=== PATIENT | male | born 1945 | race Hispanic/Latino ===

== ENCOUNTER 2018-05-13 09:18 | Inpatient (IN) | payer MEDICARE ==
[~2018-05-13] VITALS: Ht 170.2 cm; Wt 108.5 kg
[2018-05-13] MEDS ORDERED: FAMOTIDINE 20 MG/2 ML VIAL IV STA (09:20)
[2018-05-13] MEDS ORDERED: ONDANSETRON HCL INJ 2 MG/ML VIAL IV STA (09:20)
[2018-05-13] MEDS ORDERED: SODIUM CHLORIDE 0.9% 1000ML 1,000 ML IV ONE (09:30)
[2018-05-13 09:35] LABS: BASOPHILS # (AUTO) 0.1 (0.0-0.1); BASOPHILS % 0.3 % (0.0-1.0); EOSINOPHILS # (AUTO) 0.1 (0.0-0.4); EOSINOPHILS % 0.7 % (0.0-6.0); HEMOGLOBIN 13.9 g/dL (14.0-18.0); MEAN CORPUSCULAR HEMOGLOBIN 31.4 pg (28-32); MEAN CORPUSCULAR HGB CONC 34.8 g/dL (31-35); MEAN CORPUSCULAR VOLUME 90.5 fL (81-99); MONOCYTES # (AUTO) 1.1 (0.2-0.8); MONOCYTES % 6.6 % (4.4-11.3); NEUTROPHILS # (AUTO) 13.5 (2.1-6.9); NEUTROPHILS % 79.7 % (38.7-80.0); PLATELET COUNT 266 x10e3/uL (140-360); RED BLOOD COUNT 4.42 x10e6/uL (4.3-5.7); RED CELL DISTRIBUTION WIDTH 13.8 % (11.7-14.4)
[2018-05-13 09:56] LABS: ALBUMIN 3.7 g/dL (3.5-5.0); ANION GAP 18.2 mmol/L (8-16); CREATININE, SERUM 2.73 mg/dL (0.72-1.25); POTASSIUM 4.2 mmol/L (3.5-5.1)
[2018-05-13 09:58] LABS: MAGNESIUM 1.8 MG/DL (1.3-2.1); PHOSPHORUS 3.2 MG/DL (2.3-4.7)
[2018-05-13 10:11] LABS: THYROID STIMULATING HORMONE 4.709 uIU/mL (0.350-4.940)
[2018-05-13 10:36] LABS: BILIRUBIN,URINE NEGATIVE (NEGATIVE); CLARITY,URINE CLEAR (CLEAR); COLOR,URINE YELLOW (YELLOW); KETONES,URINE NEGATIVE (NEGATIVE); LEUKOCYTE ESTERASE ,URINE NEGATIVE (NEGATIVE); NITRITE,URINE NEGATIVE (NEGATIVE); PROTEIN,URINE DIPSTICK NEGATIVE (NEGATIVE); URINE UROBILINOGEN 0.2 mg/dL (0.2 - 1)
[2018-05-13] MEDS ORDERED: SODIUM CHLORIDE 0.9% 500ML 500 ML IV ONE (10:45)
[2018-05-13 10:53] LABS: BACTERIA,URINE RARE /HPF; CALCIUM OXALATE CRYSTALS,UR FEW (FEW); EPITHELIAL CELLS,URINE RARE /LPF; RBC,URINE 0-5 /HPF (0-5); WBC,URINE (MAN) 0-5 /HPF (0-5)
--- NOTE | 2018-05-13 11:24 | Diagnostic Imaging Report ---
PROCEDURE:ABDOMEN ACUTE SERIES W/PA CXR COMPARISON:None. INDICATIONS:DIARRHEA FINDINGS: CHEST: The lungs are well-inflated. No focal airspace consolidation, pleural effusion, or pneumothorax. Subsegmental atelectasis in the left lung base. Tortuous thoracic aorta with atherosclerotic calcification. Normal heart size without pulmonary edema. BOWEL PATTERN: No dilated, air-filled loops of bowel. No free air under the diaphragm on the upright radiograph. SOFT TISSUES: Unremarkable. BONES: Postsurgical changes related to L4 laminectomy and L4-L5 posterior fusion with intervertebral disc spacer placement. CONCLUSION: 1. No acute thoracic abnormality. 2. Nonobstructive bowel gas pattern. Dictated by: Pete Elizabeth M.D. on 05/13/2018 at 11:30 Electronically approved by: Pete Elizabeth M.D. on 05/13/2018 at 11:30
[2018-05-13] MEDS ORDERED: MORPHINE SULFATE 2 MG/ML SYR IV PRN (11:30)
[2018-05-13] MEDS ORDERED: ONDANSETRON HCL INJ 2 MG/ML VIAL IV PRN (11:30)
[2018-05-13] MEDS ORDERED: SODIUM CHLORIDE FLUSH 10 ML SYR INJ PRN (11:30)
[2018-05-13] MEDS ORDERED: LEVOTHYROXINE50 MCG PO (11:39)
[2018-05-13] MEDS ORDERED: LISINOPRIL2.5 MG PO (11:39)
[2018-05-13] MEDS ORDERED: METFORMIN HCL500 MG PO (11:39)
[2018-05-13] MEDS ORDERED: IBUPROFEN200 MG PO (11:39)
[2018-05-13] MEDS ORDERED: LYRICA50 MG PO (11:39)
[2018-05-13] MEDS ORDERED: ATORVASTATIN CA20 MG PO (11:39)
[2018-05-13] MEDS ORDERED: CITALOPRAM HBR20 MG PO (11:39)
[2018-05-13] MEDS ORDERED: NORCO 10-325 T1 EACH PO (11:39)
[2018-05-13] MEDS ORDERED: OLANZAPINE5 MG PO ×2 (11:39)
[2018-05-13] MEDS ORDERED: RANITIDINE HCL150 MG PEG (11:39)
[2018-05-13] MEDS ORDERED: MORPHINE SULFATE INJ 4 MG/ML INJ IV PRN (11:45)
[2018-05-13] MEDS ORDERED: ALBUTEROL/IPRATROPIUM 3 ML NEB NEB ONE (11:45)
[2018-05-13] MEDS: SODIUM CHLORIDE 0.9% 1000ML 1,000 ML IV SCH ×2 (11:46→21:15)
[2018-05-13 13:24] VITALS: BP 134/60
[2018-05-13 15:50] VITALS: BP 130/60
[2018-05-13] MEDS ORDERED: CEFTRIAXONE SOD 1 GM/NS 50 ML 50 ML IV SCH (17:15)
[2018-05-13] MEDS ORDERED: DEXTROSE 50% SYRINGE 50 ML IV PRN (17:15)
--- NOTE | 2018-05-13 17:35 | History and Physical ---
CHIEF COMPLAINT: Generalized weakness, dehydration, acute kidney failure, profound diarrhea with gastroenteritis. HISTORY OF PRESENT ILLNESS: Patient is a 73-year-old male who lives with his nephew who is about 30 years old or so. For the past week, the patient had increase in generalized weakness, recurrent diarrhea multiple episodes during the today. The patient is dehydrated associated with nausea and vomiting. He came into the hospital for evaluation. X-ray of the abdomen showed nonobstructive bowel gas pattern. Patient does have a leukocytosis of 16.89 WBC. His chemistry panel showed BUN and creatinine of 55 and 2.7 respectively. The patient is dehydrated. He had nausea and vomiting. His sodium level was low. Urinalysis unremarkable. The patient is having recurrent bowel movements at this time. He is quite weak and seems fatigued. PAST MEDICAL HISTORY: Hypothyroidism, diabetes type 2, hypertension, dyslipidemia, depression, diabetic neuropathy, chronic kidney disease. PAST SURGICAL HISTORY: Left foot surgery. Lower back surgery. SOCIAL HISTORY: Patient is a tobacco smoker for many years but recently diminished in the amount. He denied alcohol usage. No recreational drug use. FAMILY HISTORY: Noncontributory. ALLERGIES: NO KNOWN ALLERGIES. HOME MEDICATIONS: Lipitor, Celexa, Dutton, ibuprofen, levothyroxine, lisinopril, metformin, olanzapine, Lyrica and ranitidine. REVIEW OF SYSTEMS: Nausea, vomiting, abdominal pain, generalized weakness. PHYSICAL EXAMINATION: VITAL SIGNS: Temperature is 97.7. Blood pressure 101/55. Pulse rate is 88. Respirations 20. GENERAL: The patient is not in acute distress. He is awake. HEENT: Normocephalic, atraumatic, anicteric. NECK: Supple grossly. PULMONARY: Diminished breath sounds bilaterally without any wheezes nor rales. CARDIOVASCULAR: S1 and S2. Regular rate and rhythm. ABDOMEN: Soft. Tenderness. No guarding or rebound tenderness. EXTREMITIES: No gross cyanosis or edema. NEUROLOGIC: There is no gross focal deficit. LABORATORY: Sodium is 121, potassium 4.2, chloride 91, bicarb 16, BUN is 55, creatinine 2.7, glucose is 142. AST is 37, ALT 43. TSH is 4.7. WBC is 16.9. Hemoglobin 13.9. Hematocrit 40. Platelet is 266. Urinalysis unremarkable. IMPRESSION: 1. Acute gastroenteritis. 2. Acute kidney injury secondary to the above. 3. Acute dehydration. 4. Leukocytosis. 5. Multiple chronic baseline problems. PLAN: Hold some home medication including metformin and lisinopril. IV fluid, normal saline rehydration. Repeat the lab work in the morning. Flagyl 500 mg IV q.8 and Rocephin 1 gram IV daily. Will check the stool sample. CT scan of abdomen and pelvis. Will obtain chest x-ray. Will monitor the patient closely on admission. Job#: [id number] [place]
[2018-05-13] MEDS: CEFTRIAXONE SOD 1 GM VIAL IV SCH (18:30)
[2018-05-13] MEDS: METRONIDAZOLE 500MG/NS 100ML 100 ML IV SCH (18:30)
[2018-05-13] MEDS: HYDROCODONE/APAP 10MG-325MG TAB PO PRN (19:44)
[2018-05-13 20:00] VITALS: BP 134/60
[2018-05-13] MEDS: INSULIN LISPRO 100 UNIT/1 ML 3ML VIAL SQ SCH (20:54)
[2018-05-13] MEDS: OLANZAPINE 5 MG TAB PO SCH (21:15)
[2018-05-14] VITALS (9 sets, daily range): BP systolic 117–166; BP diastolic 58–76
[2018-05-14] MEDS: METRONIDAZOLE 500MG/NS 100ML 100 ML IV SCH ×3 (02:01→17:09)
[2018-05-14] MEDS: SODIUM CHLORIDE 0.9% 1000ML 1,000 ML IV SCH ×3 (03:29→20:32)
[2018-05-14 05:15] LABS: BASOPHILS % 0.2 % (0.0-1.0); EOSINOPHILS # (AUTO) 0.2 (0.0-0.4); EOSINOPHILS % 1.8 % (0.0-6.0); HEMATOCRIT 36.4 % (38.2-49.6); HEMOGLOBIN 12.5 g/dL (14.0-18.0); LYMPHOCYTES # (AUTO) 1.5 (1.0-3.2); LYMPHOCYTES % 18.7 % (18.0-39.1); MEAN CORPUSCULAR HEMOGLOBIN 31.4 pg (28-32); MEAN CORPUSCULAR HGB CONC 34.3 g/dL (31-35); MEAN CORPUSCULAR VOLUME 91.5 fL (81-99); MONOCYTES # (AUTO) 0.9 (0.2-0.8); MONOCYTES % 11.1 % (4.4-11.3); NEUTROPHILS # (AUTO) 5.5 (2.1-6.9); NEUTROPHILS % 67.6 % (38.7-80.0); PLATELET COUNT 188 x10e3/uL (140-360); RED BLOOD COUNT 3.98 x10e6/uL (4.3-5.7); RED CELL DISTRIBUTION WIDTH 14.2 % (11.7-14.4)
[2018-05-14] MEDS: LEVOTHYROXINE SODIUM 75 MCG TAB PO SCH (05:19)
[2018-05-14 05:50] LABS: ALBUMIN/GLOBULIN RATIO 0.9 (0.8-2.0); ANION GAP 12.4 mmol/L (8-16); CALCIUM 8.8 mg/dL (8.4-10.2); CREATININE, SERUM 1.38 mg/dL (0.72-1.25); POTASSIUM 4.4 mmol/L (3.5-5.1)
[2018-05-14] MEDS: INSULIN LISPRO 100 UNIT/1 ML 3ML VIAL SQ SCH ×4 (07:30→21:00)
[2018-05-14] MEDS: PANTOPRAZOLE 40 MG 10ML VIAL IV SCH (09:02)
[2018-05-14] MEDS: CITALOPRAM HYDROBROMIDE 20 MG TAB PO SCH (09:02)
[2018-05-14] MEDS: PREGABALIN 50 MG CAP PO SCH (09:02)
[2018-05-14] MEDS: OLANZAPINE 5 MG TAB PO SCH ×2 (09:02→21:07)
[2018-05-14] MEDS: HYDROCODONE/APAP 10MG-325MG TAB PO PRN ×2 (13:15→20:33)
[2018-05-14] MEDS: CEFTRIAXONE SOD 1 GM VIAL IV SCH (16:49)
[2018-05-15] VITALS (8 sets, daily range): BP systolic 119–177; BP diastolic 58–82
[2018-05-15] MEDS: METRONIDAZOLE 500MG/NS 100ML 100 ML IV SCH ×3 (01:10→17:25)
[2018-05-15] MEDS: SODIUM CHLORIDE 0.9% 1000ML 1,000 ML IV SCH ×3 (03:29→23:28)
[2018-05-15] MEDS: LEVOTHYROXINE SODIUM 75 MCG TAB PO SCH (05:45)
[2018-05-15] MEDS: INSULIN LISPRO 100 UNIT/1 ML 3ML VIAL SQ SCH ×4 (07:30→20:49)
[2018-05-15] MEDS: HYDROCODONE/APAP 10MG-325MG TAB PO PRN ×2 (08:37→18:42)
[2018-05-15] MEDS: PREGABALIN 50 MG CAP PO SCH (08:58)
[2018-05-15] MEDS: CITALOPRAM HYDROBROMIDE 20 MG TAB PO SCH (08:58)
[2018-05-15] MEDS: PANTOPRAZOLE 40 MG 10ML VIAL IV SCH (08:58)
[2018-05-15] MEDS: OLANZAPINE 5 MG TAB PO SCH ×2 (08:58→20:38)
[2018-05-15] MEDS: CEFTRIAXONE SOD 1 GM VIAL IV SCH (17:25)
[2018-05-16] VITALS: BP 110/53
[2018-05-16] MEDS: METRONIDAZOLE 500MG/NS 100ML 100 ML IV SCH ×2 (02:12→09:14)
[2018-05-16] MEDS: SODIUM CHLORIDE 0.9% 1000ML 1,000 ML IV SCH ×2 (03:29→11:29)
[2018-05-16 04:00] VITALS: BP 163/84
[2018-05-16] MEDS: LEVOTHYROXINE SODIUM 75 MCG TAB PO SCH (05:01)
[2018-05-16 05:06] LABS: BASOPHILS % 0.3 % (0.0-1.0); EOSINOPHILS # (AUTO) 0.1 (0.0-0.4); EOSINOPHILS % 1.5 % (0.0-6.0); HEMATOCRIT 32.9 % (38.2-49.6); HEMOGLOBIN 11.2 g/dL (14.0-18.0); LYMPHOCYTES # (AUTO) 1.4 (1.0-3.2); LYMPHOCYTES % 19.4 % (18.0-39.1); MEAN CORPUSCULAR VOLUME 91.1 fL (81-99); MONOCYTES # (AUTO) 0.7 (0.2-0.8); MONOCYTES % 9.9 % (4.4-11.3); NEUTROPHILS % 68.5 % (38.7-80.0); PLATELET COUNT 184 x10e3/uL (140-360); RED BLOOD COUNT 3.61 x10e6/uL (4.3-5.7); RED CELL DISTRIBUTION WIDTH 14.2 % (11.7-14.4)
[2018-05-16 05:22] LABS: BLOOD UREA NITROGEN 7 mg/dL (7-26); BUN/CREATININE RATIO 8 (6-25); CALCIUM 7.9 mg/dL (8.4-10.2); CARBON DIOXIDE 24 mmol/L (22-29); CHLORIDE 107 mmol/L (98-107); CREATININE, SERUM 0.88 mg/dL (0.72-1.25); EST GLOMERULAR FILTRATION RATE > 60 ML/MIN (60-); GLUCOSE 112 mg/dL (74-118); SODIUM 140 mmol/L (136-145)
[2018-05-16] MEDS: INSULIN LISPRO 100 UNIT/1 ML 3ML VIAL SQ SCH ×2 (07:30→11:30)
[2018-05-16 07:33] VITALS: BP 166/92
[2018-05-16 07:59] VITALS: BP 166/92
[2018-05-16] MEDS: PANTOPRAZOLE 40 MG 10ML VIAL IV SCH (08:47)
[2018-05-16] MEDS: PREGABALIN 50 MG CAP PO SCH (08:47)
[2018-05-16] MEDS: CITALOPRAM HYDROBROMIDE 20 MG TAB PO SCH (08:47)
[2018-05-16] MEDS: OLANZAPINE 5 MG TAB PO SCH (08:47)
--- NOTE | 2018-05-16 10:25 | Discharge Summary ---
FINAL DIAGNOSES 1. Severe acute gastroenteritis associated with acute kidney failure associated with dehydration and metabolic acidosis. 2. Metabolic acidosis secondary combination of acute gastroenteritis, dehydration and taking metformin. 3. Leukocytosis, resolved. 4. Electrolyte disorder, corrected. SUMMARY: Patient is a 73-year-old male who came in with severe diarrhea multiple times daily for the past 4-5 days. Patient with acute kidney failure. His BUN and creatinine were elevated at 55 and 2.7 respectively. Baseline is 0.8. Patient also has low sodium level of 121 secondary to dehydration. Patient has significant metabolic acidosis, combination of multiple as mentioned above. All has resolved now. The patient is stable. He will go home today. Follow up with his family doctor next week. The patient will resume his home medication. Flagyl 500 mg t.i.d. for 5 days and Zofran ODT as needed. Patient will go home today. Follow up with his family doctor for adjustment in medication if needed. Job#: [id number] [place]
[2018-05-16] MEDS: HYDROCODONE/APAP 10MG-325MG TAB PO PRN (11:33)
[2018-05-16 11:42] VITALS: BP 158/90
== END 2018-05-16 11:47 | disposition home or self-care (01) | DRG 683 ==
LOC: ER 09:18 → ERHOLD 11:29 → IMCU 12:40 → OBSVTOIN 05-15 08:59 → MED/SURG2 05-15 09:52
PROVIDERS: ADMIT Internal Medicine; ATTEND Internal Medicine
DX: N17.9 Acute kidney failure, unspecified (principal); A08.39 Other viral enteritis; E87.1 Hypo-osmolality and hyponatremia; E87.2 Acidosis; E86.0 Dehydration; D72.829 Elevated white blood cell count, unspecified; Z72.0 Tobacco use; E03.9 Hypothyroidism, unspecified; E11.42 Type 2 diabetes mellitus with diabetic polyneuropathy; E11.22 Type 2 diabetes mellitus with diabetic chronic kidney disease; N18.9 Chronic kidney disease, unspecified; E78.5 Hyperlipidemia, unspecified; I12.9 Hypertensive chronic kidney disease with stage 1 through stage 4 chronic kidney disease, or unspecified chronic kidney disease; Z79.84 Long term (current) use of oral hypoglycemic drugs
CPT/HCPCS: 36415; 74022; 80048; 80053; 81001; 82948; 83690; 83735; 84100; 84443; 84484; 85025; 94640; 96360; 99284; G0378; J0696; J2405; J7030; J7040

== ENCOUNTER 2018-12-11 15:22 | Observation (INO) | payer MEDICARE ==
[~2018-12-11] VITALS: Ht 170.2 cm; Wt 101.2 kg
[~2018-12-11 15:22] MED LIST: ATORVASTATIN CA20 MG PO; CITALOPRAM HBR20 MG PO; IBUPROFEN200 MG PO; LEVOTHYROXINE50 MCG PO; LISINOPRIL2.5 MG PO; LYRICA50 MG PO; METFORMIN HCL500 MG PO; NORCO 10-325 T1 EACH PO; OLANZAPINE5 MG PO; RANITIDINE HCL150 MG PEG
[2018-12-11] MEDS ORDERED: ASPIRIN 81 MG CHEW TAB PO ONE (16:30)
[2018-12-11 16:38] LABS: BASOPHILS % 0.3 % (0.0-1.0); EOSINOPHILS # (AUTO) 0.3 (0.0-0.4); EOSINOPHILS % 2.2 % (0.0-6.0); HEMATOCRIT 36.1 % (38.2-49.6); HEMOGLOBIN 11.9 g/dL (14.0-18.0); LYMPHOCYTES # (AUTO) 1.5 (1.0-3.2); LYMPHOCYTES % 12.9 % (18.0-39.1); MEAN CORPUSCULAR HEMOGLOBIN 30.6 pg (28-32); MEAN CORPUSCULAR VOLUME 92.8 fL (81-99); MONOCYTES # (AUTO) 0.8 (0.2-0.8); MONOCYTES % 6.5 % (4.4-11.3); NEUTROPHILS % 77.6 % (38.7-80.0); PLATELET COUNT 258 x10e3/uL (140-360); RED BLOOD COUNT 3.89 x10e6/uL (4.3-5.7); RED CELL DISTRIBUTION WIDTH 15.5 % (11.7-14.4)
[2018-12-11 16:44] LABS: INR 0.91; PROTHROMBIN TIME 12.7 seconds (11.9-14.5)
[2018-12-11 16:45] LABS: PARTIAL THROMBOPLASTIN TIME 30.1 seconds (23.8-35.5)
[2018-12-11 16:52] LABS: BILIRUBIN,URINE NEGATIVE (NEGATIVE); CLARITY,URINE SL CLOUDY (CLEAR); COLOR,URINE YELLOW (YELLOW); KETONES,URINE NEGATIVE (NEGATIVE); LEUKOCYTE ESTERASE ,URINE 1+ (NEGATIVE); NITRITE,URINE NEGATIVE (NEGATIVE); PROTEIN,URINE DIPSTICK NEGATIVE (NEGATIVE); URINE UROBILINOGEN 0.2 mg/dL (0.2 - 1)
[2018-12-11 16:54] LABS: ALANINE AMINOTRANSFERASE 10 IU/L (0-55); ALBUMIN 3.3 g/dL (3.5-5.0); ALBUMIN/GLOBULIN RATIO 0.8 (0.8-2.0); ALKALINE PHOSPHATASE 75 IU/L (40-150); ANION GAP 12.5 mmol/L (8-16); BLOOD UREA NITROGEN 8 mg/dL (7-26); BUN/CREATININE RATIO 8 (6-25); CALCIUM 9.8 mg/dL (8.4-10.2); CARBON DIOXIDE 28 mmol/L (22-29); CHLORIDE 98 mmol/L (98-107); CREATINE KINASE 124 IU/L (30-200); CREATININE, SERUM 1.04 mg/dL (0.72-1.25); EST GLOMERULAR FILTRATION RATE > 60 ML/MIN (60-); GLUCOSE 122 mg/dL (74-118); POTASSIUM 3.5 mmol/L (3.5-5.1); SODIUM 135 mmol/L (136-145)
--- NOTE | 2018-12-11 16:55 | Diagnostic Imaging Report ---
Examination: Single AP view of the chest. COMPARISON: 05/13/2018 INDICATION: Dizziness DISCUSSION: Lungs are well-inflated. Unchanged linear opacity in the left lung base compatible with scar or subsegmental atelectasis. Lungs are otherwise well-inflated and without focal consolidation, pleural effusion, or pneumothorax. Probable calcified right hilar lymph nodes. Otherwise stable cardiomediastinal contour. Atherosclerotic calcification of the thoracic aorta. No overt pulmonary edema. No acute osseous abnormality. IMPRESSION: No acute cardiopulmonary abnormality. Signed by: Dr. Pete Elizabeth M.D. on 12/11/2018 4:52 PM
[2018-12-11 17:03] LABS: BACTERIA,URINE MODERATE /HPF; EPITHELIAL CELLS,URINE RARE /LPF; WBC,URINE (MAN) 0-5 /HPF (0-5)
--- NOTE | 2018-12-11 17:09 | Diagnostic Imaging Report ---
Examination: CT head without contrast Clinical Indication: Dizziness. Falls. Technique: Transaxial noncontrast images from the skull base through the vertex were obtained. Sagittal and coronal reformatted images were done. Dose modulation, iterative reconstruction, and/or weight based adjustment of the mA/kV was utilized to reduce the radiation dose to as low as reasonably achievable. Comparison: None. Findings: Scalp: No abnormalities. Bones: Intact. No fractures. No blastic or lytic lesions. Brain sulci: Appropriate for patient's age. Ventricles: Normal in size and configuration. No hydrocephalus. . Extra-axial space: No abnormalities. Parenchyma: There is symmetric hypoattenuation within the bilateral globi pallidi from prior toxic/ metabolic process. There are patchy areas of low-attenuation within subcortical and periventricular white matter, nonspecific, but could represent microvascular ischemic disease. No masses, hemorrhage, or acute or chronic cortical based vascular insults. Suprasellar region: CSF filled sella. Craniocervical junction: The foramen magnum is patent. No Chiari one malformation. Impression: 1. No acute intracranial finding. 2. Mild chronic microvascular ischemic change. 3. Prior toxic metabolic process of the bilateral globi pallidi. Signed by: Dr. Tami Diaz M.D. on 12/11/2018 5:05 PM
[2018-12-11 17:13] LABS: THYROID STIMULATING HORMONE 0.267 uIU/mL (0.350-4.940)
[2018-12-11] MEDS ORDERED: HYDRALAZINE HCL 20 MG/ML VIAL IV STA (17:38)
[2018-12-11] MEDS ORDERED: HYDRALAZINE HCL 20 MG/ML VIAL IV ONE (18:28)
[2018-12-11] MEDS ORDERED: LISINOPRIL-HCT1 EAC2 PO (20:01)
[2018-12-11] MEDS ORDERED: IBUPROFEN 600 MG PO SCH (20:15)
[2018-12-11] MEDS ORDERED: SODIUM CHLORIDE FLUSH 10 ML SYR INJ PRN (20:15)
[2018-12-11] MEDS ORDERED: DEXTROSE 50% SYRINGE 50 ML IV PRN (20:15)
[2018-12-11] MEDS ORDERED: HYDROCODONE/APAP 10MG-325MG TAB PO PRN (20:15)
[2018-12-11] MEDS ORDERED: HYDRALAZINE HCL 20 MG/ML VIAL IV PRN (20:15)
[2018-12-11] MEDS ORDERED: ONDANSETRON HCL INJ 2MG/ML 2ML 2 MG/ML VIAL IV PRN (20:15)
[2018-12-11] MEDS ORDERED: IBUPROFEN 600 MG TAB PO PRN (20:30)
[2018-12-11] MEDS: INSULIN REGULAR, HUMAN 100 UNIT/1 ML 3ML VIAL SQ SCH (20:34)
[2018-12-11] MEDS: ATORVASTATIN 20 MG TAB PO SCH (20:36)
--- NOTE | 2018-12-11 20:52 | NUR ---
pt placed on telemetry box #20.
[2018-12-11 21:42] VITALS: BP 179/77
[2018-12-11] MEDS ORDERED: PNEUMOCOCCAL VACCINE POLYVALENT 23 MCG/0.5 ML VIAL IM SCH (22:29)
[2018-12-11 22:30] VITALS: BP 179/77
[2018-12-11] MEDS ORDERED: FLOMAX0.4 MG PO (22:36)
[2018-12-11] MEDS ORDERED: FISH OIL 1,2001 EACH PO (22:36)
[2018-12-11] MEDS: MECLIZINE HCL 12.5 MG TAB PO SCH (23:01)
[2018-12-12] VITALS (8 sets, daily range): BP systolic 90–173; BP diastolic 44–79
[2018-12-12 01:57] LABS: CREATINE KINASE MB 1.3 ng/mL (0-5.0)
[2018-12-12] MEDS: MECLIZINE HCL 12.5 MG TAB PO SCH ×3 (05:37→18:00)
[2018-12-12] MEDS: LEVOTHYROXINE SODIUM 75 MCG TAB PO SCH (05:37)
[2018-12-12 05:58] LABS: BASOPHILS % 0.4 % (0.0-1.0); EOSINOPHILS # (AUTO) 0.3 (0.0-0.4); EOSINOPHILS % 2.7 % (0.0-6.0); HEMATOCRIT 33.4 % (38.2-49.6); HEMOGLOBIN 10.8 g/dL (14.0-18.0); LYMPHOCYTES # (AUTO) 1.7 (1.0-3.2); LYMPHOCYTES % 16.7 % (18.0-39.1); MEAN CORPUSCULAR HEMOGLOBIN 30.1 pg (28-32); MEAN CORPUSCULAR HGB CONC 32.3 g/dL (31-35); MONOCYTES # (AUTO) 0.8 (0.2-0.8); MONOCYTES % 8.5 % (4.4-11.3); NEUTROPHILS # (AUTO) 7.1 (2.1-6.9); NEUTROPHILS % 71.3 % (38.7-80.0); PLATELET COUNT 276 x10e3/uL (140-360); RED BLOOD COUNT 3.59 x10e6/uL (4.3-5.7); RED CELL DISTRIBUTION WIDTH 15.4 % (11.7-14.4)
[2018-12-12 06:19] LABS: CREATINE KINASE MB 1.1 ng/mL (0-5.0)
[2018-12-12 06:34] LABS: ALANINE AMINOTRANSFERASE 8 IU/L (0-55); ALBUMIN/GLOBULIN RATIO 0.8 (0.8-2.0); ALKALINE PHOSPHATASE 69 IU/L (40-150); ANION GAP 12.5 mmol/L (8-16); BLOOD UREA NITROGEN 9 mg/dL (7-26); BUN/CREATININE RATIO 8 (6-25); CALCIUM 9.2 mg/dL (8.4-10.2); CARBON DIOXIDE 28 mmol/L (22-29); CHLORIDE 101 mmol/L (98-107); CREATININE, SERUM 1.06 mg/dL (0.72-1.25); EST GLOMERULAR FILTRATION RATE > 60 ML/MIN (60-); GLUCOSE 110 mg/dL (74-118); POTASSIUM 3.5 mmol/L (3.5-5.1); SODIUM 138 mmol/L (136-145)
--- NOTE | 2018-12-12 07:12 | NUR ---
PT ALERT RESP EVEN, AND UNLABORED NO DISTRESS NOTED PT ABLE TO MAKE NEEDS KNOWN, CALL LIGHT IN REACH FAMILY AT BEDSIDE.
[2018-12-12] MEDS: INSULIN REGULAR, HUMAN 100 UNIT/1 ML 3ML VIAL SQ SCH ×4 (07:30→20:26)
[2018-12-12] MEDS: CITALOPRAM HYDROBROMIDE 20 MG TAB PO SCH (08:43)
[2018-12-12] MEDS: LISINOPRIL 10 MG TAB PO SCH (08:43)
[2018-12-12] MEDS: HYDROCHLOROTHIAZIDE 25 MG TAB PO SCH (08:43)
[2018-12-12] MEDS: OLANZAPINE 5 MG TAB PO SCH (08:44)
[2018-12-12] MEDS: PREGABALIN 50 MG CAP PO SCH (08:44)
[2018-12-12] MEDS ORDERED: LEVOTHYROXINE SODIUM 50 MCG TAB PO SCH (09:00)
--- NOTE | 2018-12-12 09:57 | NUR ---
call for orders to take off tele to go to mri. Yes per Dr. Pilar Gayle.
--- NOTE | 2018-12-12 10:09 | NUR ---
pt off unit for MRI. no tele.
--- NOTE | 2018-12-12 10:43 | NUR ---
pt RETURNED from MRI tele replaced
[2018-12-12 13:59] LABS: CREATINE KINASE MB 1.2 ng/mL (0-5.0)
[2018-12-12] MEDS ORDERED: LORAZEPAM 0.5 MG TAB PO PRN (14:30)
--- NOTE | 2018-12-12 15:19 | Diagnostic Imaging Report ---
Exam: Brain MRI without IV contrast History: Dizziness Comparison studies: Head CT of 12/11/2018. Technique: Sagittal and axial T2 FS, axial DWI, axial T2*GRE, axial T1 FLAIR and axial coronal T2 FLAIR. Intravenous contrast: None Findings: Scalp: Circumscribed 8 mm nodule in the midline frontal scalp with restricted diffusion is most likely an epidermal inclusion cyst. Bone marrow: Normal in signal intensity. Brain sulci: Appropriate for age. Ventricles: Normal in size. No hydrocephalus. Extra axial spaces: No mass, no fluid collection. Parenchyma: No mass, hemorrhage or acute ischemia. Scattered T2 FLAIR hyperintense foci in the supratentorial white matter are nonspecific but most compatible with chronic microvascular ischemic changes. There are nonspecific chronic lacunar infarcts in the bilateral globi pallidi. Similar findings can be seen as sequela of prior anoxic/metabolic insult. Sequela of prior carbon monoxide poisoning could have this appearance in the proper clinical setting. Suprasellar region: No abnormalities. Craniocervical junction: Patent foramen magnum. No Chiari malformation. Vessels: Normal flow-voids in the arteries and sinuses. Incidental findings: Partially imaged 11 mm circumscribed T2 hyperintensity regional to the inferior deep right parotid space is nonspecific (cannot further evaluate on this exam). Findings could represent primary neoplasm of salivary gland origin such as a pleomorphic adenoma, small lymph node or possibly dilated venous or lymphatic channel. IMPRESSION: 1. No acute intracranial abnormalities. 2. Mild to moderate microvascular ischemic changes. 3. Chronic bilateral globus pallidus lacunar infarcts as described. 4. Incidental partially imaged, nonaggressive-appearing, 11 mm nodular structure in the deep right parotid space. Nonemergent neck CT with IV contrast could further evaluate. Signed by: Dr. Pete Mc M.D. on 12/12/2018 3:16 PM
[2018-12-12] MEDS ORDERED: SODIUM CHLORIDE 0.9% 250ML 250 ML ONE (16:28)
[2018-12-12] MEDS: CEFEPIME 1GM/NS 0.9% 50 ML 50 ML IV SCH ×2 (16:34→20:30)
--- NOTE | 2018-12-12 19:23 | NUR ---
PT REPORT GIVEN TO ONCOMING NURSE, FOR CONTINUED CARE.
[2018-12-12] MEDS: ATORVASTATIN 20 MG TAB PO SCH (20:30)
[2018-12-13] VITALS: BP 140/65
[2018-12-13] MEDS: MECLIZINE HCL 12.5 MG TAB PO SCH ×3 (00:28→13:47)
[2018-12-13 04:00] VITALS: BP 154/54
[2018-12-13] MEDS: LEVOTHYROXINE SODIUM 75 MCG TAB PO SCH (05:32)
[2018-12-13] MEDS: INSULIN REGULAR, HUMAN 100 UNIT/1 ML 3ML VIAL SQ SCH (07:30)
--- NOTE | 2018-12-13 08:20 | NUR ---
patient resting in bed, tolerated with breakfast, denies any pain ,not in any distress
[2018-12-13] MEDS: LISINOPRIL 10 MG TAB PO SCH (08:53)
[2018-12-13] MEDS: HYDROCHLOROTHIAZIDE 25 MG TAB PO SCH (08:53)
[2018-12-13] MEDS: OLANZAPINE 5 MG TAB PO SCH (08:53)
[2018-12-13] MEDS: CITALOPRAM HYDROBROMIDE 20 MG TAB PO SCH (08:54)
[2018-12-13] MEDS: CEFEPIME 1GM/NS 0.9% 50 ML 50 ML IV SCH (08:54)
[2018-12-13] MEDS: PREGABALIN 50 MG CAP PO SCH (08:54)
[2018-12-13 09:02] VITALS: BP 170/80
[2018-12-13 09:13] VITALS: BP 170/80
[2018-12-13] MEDS ORDERED: CIPRO500 MG PO (11:53)
[2018-12-13] MEDS ORDERED: LISINOPRIL10 MG PO (11:54)
[2018-12-13 12:00] VITALS: BP 149/76
--- NOTE | 2018-12-13 15:05 | NUR ---
patient discharged Home, Alert with no distress, prescription given, IV canula removed with tip intact, no ss of infiltration, tele box returned, family here to pick ca,. All belongings got with patient
[2018-12-13 16:00] VITALS: BP 179/79
== END 2018-12-13 15:32 | disposition home or self-care (01) ==
LOC: ER 15:22 → ERHOLD 20:28 → IMCU 21:02
DX: I16.9 Hypertensive crisis, unspecified (principal); R42 Dizziness and giddiness; I10 Essential (primary) hypertension; Z91.81 History of falling; N39.0 Urinary tract infection, site not specified; F41.9 Anxiety disorder, unspecified; Z85.01 Personal history of malignant neoplasm of esophagus; Z79.4 Long term (current) use of insulin; E03.9 Hypothyroidism, unspecified; E78.5 Hyperlipidemia, unspecified
CPT/HCPCS: 36415 ×2; 70450; 70551; 71045; 80053 ×2; 81001; 82550 ×2; 82553 ×2; 82948 ×3; 83880; 84443; 84484 ×2; 85025 ×2; 85610; 85730; 87086; 87186; 87400; 93005; 96365 ×2; 99285; G0378 ×3; J0360; J0692 ×2; J7050; J8597 ×3